=== PATIENT | male | born 1945 | race Caucasian/White ===

== ENCOUNTER 2019-05-26 14:52 | Inpatient (IN) | payer MEDICARE ==
[~2019-05-26] VITALS: Ht 170.2 cm; Wt 89.4 kg
[2019-05-26 15:15] VITALS: BP 145/79
--- NOTE | 2019-05-26 15:25 | NUR ---
PT VOID 200ML, BLADDER SCAN PER ORDER 61ML IN SCAN. CALL LIGHT IN REACH.
[2019-05-26 15:44] LABS: URINE BILIRUBIN - DIPSTICK NEGATIVE (NEGATIVE); URINE BLOOD DIPSTICK MODERATE (NEGATIVE); URINE CLARITY CLEAR; URINE COLOR YELLOW; URINE GLUCOSE - DIPSTICK NEGATIVE (NEGATIVE); URINE KETONE 15 mg/dL (NEGATIVE); URINE LEUK ESTERASE NEGATIVE (Negative); URINE NITRITE - DIPSTICK NEGATIVE (Negative); URINE PROTEIN - DIPSTICK 100 mg/dL (NEG-TRACE); URINE SPECIFIC GRAVITY 1.015
[2019-05-26 15:45] LABS: URINE WBC 0-2 WBC/hpf (0-5)
[2019-05-26 16:07] LABS: HEMATOCRIT 42.2 % (39.0-50.0); HEMOGLOBIN 13.8 g/dl (14.0-18.0); IMMATURE GRANULOCYTES 0.3 % (0.0-5.0); MEAN CORPUSCULAR HGB 30.4 pG CALC (26.0-32.0); MEAN CORPUSCULAR HGB CONC 32.7 g/L CALC (32.0-36.0); NEUT# 8.64 thou/uL (1.82-7.42); RED BLOOD COUNT 4.54 mill/uL (4.70-6.10); RED CELL DISTRI WIDTH 13.7 % (11.5-15.5)
[2019-05-26 16:13] LABS: ALBUMIN 3.8 g/dL (3.2-5.0); ALKALINE PHOSPHATASE 88 u/l (38-126); ANION GAP 17 (6-22 (CALC)); BILIRUBIN, TOTAL 1.2 mg/dL (0.0-1.4); BUN 17 mg/dL (8-23); BUN/CREATININE RATIO 13 (12-20 (CALC)); CARBON DIOXIDE 24 mmol/l (22-30); CHLORIDE 98 mmol/l (95-108); CREATININE 1.3 mg/dL (0.7-1.3); GFR 54 ML/MIN (>=60 (CALC)); GFR FOR AFR.AMER. > 60 ML/MIN (>=60 (CALC)); POTASSIUM 3.7 mmol/l (3.5-5.1); SGOT/AST 30 u/l (19-48); SODIUM 135 mmol/l (137-146); TOTAL PROTEIN 7.5 g/dL (6.3-8.2)
[2019-05-26] MEDS ORDERED: LEVEMIR100 UNIT/M SC (16:30)
[2019-05-26] MEDS ORDERED: TAMSULOSIN HCL0.4 MG PO (16:31)
[2019-05-26] MEDS ORDERED: ADULT ASPIRIN R81 MG PO (16:31)
[2019-05-26] MEDS ORDERED: PERINDOPRIL PO (16:32)
[2019-05-26] MEDS ORDERED: ZOCOR20 M1 PO (16:32)
--- NOTE | 2019-05-26 16:56 | NUR ---
ASSESSMENT DONE. PT IS A&O X3. PT STATED PAIN IN ABD 01/22. TELE IN PLACE. PT NPO. SAFETY PRECAUTIONS REINFORCED AND CALL LIGHT IN REACH.
[2019-05-26 18:57] VITALS: BP 136/58
--- NOTE | 2019-05-26 19:56 | NUR ---
PT MEDICATED ORDERS PROVIDE W/IV ANTIBIOTIC THERAPY. PT ASSESSMENT COMPLETED AT THIS TIME. PT DENIES NAUSEA, BUT VERY TENDER LRQ OF ABD. LUNG SOUNDS ARE DIM. URINE TO BE STRAINED AND OUTPUT TO BE MONITORED.
--- NOTE | 2019-05-26 22:17 | NUR ---
LAST DOSE OF GASTROGRAPHIN ADMINISTERED AT THIS TIME. AUTOMATIC PAD MAKING MACHINE OPERATOR NOTIFIED OF LAST DOSE BEING ADMINISTERED.
--- NOTE | 2019-05-26 23:32 | NUR ---
CALLED RADIOLOGY TO HAVE PT COME DOWN FOR CT SCAN ORDERED, INFORMED THAT THEY WERE TIED UP WITH ED PT'S AT THIS TIME AND WOULD CALL WHEN SCAN IS AVALIABLE FOR PT.
[2019-05-26 23:48] VITALS: BP 153/62
[2019-05-27] VITALS (10 sets, daily range): BP systolic 129–156; BP diastolic 49–77
--- NOTE | 2019-05-27 00:55 | NUR ---
PT DOWN TO RADIOLOGY FOR CT SCAN.
--- NOTE | 2019-05-27 01:18 | NUR ---
PT ARRIVED BACK TO THE FLOOR FROM CT SCAN. CALLED TO CHECK ON PT, RELAYED MESSAGE TO PT.
--- NOTE | 2019-05-27 01:28 | NUR ---
PT MEDICATED FOR NAUSEA, PAIN AND IV ANTIBIOTIC THERAPY ADMINISTERED AT THIS TIME. PT DENIES ANY OTHER NEEDS, JUST REPORTS NOT HAVING SLEPT IN TWO DAYS AND NEEDING SOME REST.
--- NOTE | 2019-05-27 05:08 | NUR ---
IVF REPLENISHED, PT PROVIDED MOUTH MOISTENING SWABS FOR COMFORT. REPORTS PAIN 4/10, DENIES MEDICATION AT THIS TIME. DENIES NAUSEA.
--- NOTE | 2019-05-27 06:12 | NUR ---
PT MEDICATED W/IV ANTIBOITIC THERAPY. DENIES NEED FOR PAIN MEDICATION AT THIS TIME.
[2019-05-27 06:47] LABS: HEMATOCRIT 37.2 % (39.0-50.0); HEMOGLOBIN 12.1 g/dl (14.0-18.0); MEAN CORPUSCULAR HGB 30.3 pG CALC (26.0-32.0); MEAN CORPUSCULAR HGB CONC 32.5 g/L CALC (32.0-36.0); RED CELL DISTRI WIDTH 13.5 % (11.5-15.5)
[2019-05-27 07:04] LABS: CREATININE 1.4 mg/dL (0.7-1.3); MAGNESIUM 2.2 mg/dL (1.6-2.3); POTASSIUM 3.7 mmol/l (3.5-5.1)
--- NOTE | 2019-05-27 13:07 | NUR ---
PT TAKEN TO THE OR VIA STRETCHER ACCOMPANIED BY NENITA BECK
--- NOTE | 2019-05-27 17:53 | NUR ---
ASSISTED PT TO THE BATHROOM. STEADY GAIT OBSERVED.
--- NOTE | 2019-05-27 18:02 | NUR ---
PT TOLERATING DINNER WELL. NO N&V REPORTED. NOTIFIED CONTRACT SPECIALIST OF PTS TOLERANCE TO FOOD, WILL START ON INSULIN SLIDING SCALE.
--- NOTE | 2019-05-27 19:15 | NUR ---
REPORT FROM JOYCE RESTREPO. PT SITTING UP IN BED WATCHING TV. ALERT AND ORIENTED. PT DENIES ANY PAIN OR DISCOMFORT. NO APPARENT DISTRESS NOTED. URINAL EMPTIED AND STRAINED. DISCUSSED POC. PT VERBALIZED UNDERSTANDING. CALL LIGHT WITHIN REACH. WILL CONTINUE TO MONITOR.
--- NOTE | 2019-05-27 23:25 | NUR ---
PT MEDICATED WITH PRN ATIVAN PER REQUEST FOR SLEEP. DENIES ANY OTHER WANTS OR NEEDS. CALL LIGHT WITHIN REACH. WILL CONTINUE TO MONITOR.
[2019-05-28 00:20] VITALS: BP 157/77
--- NOTE | 2019-05-28 03:03 | NUR ---
PT RESTING IN BED WITH EYES CLOSED. NO APPARENT DISTRESS NOTED. CALL LIGHT WITHIN REACH. WILL CONTINUE TO MONITOR.
[2019-05-28 04:00] VITALS: BP 152/79
--- NOTE | 2019-05-28 07:05 | NUR ---
REPORT RECEIVED FROM LAURO FELTON. PT RESTING IN BED WITH EYES CLOSED. RESPIRATIONS EVEN AND UNLABORED ON RA. NO S/S OF DISTRESS AT THIS TIME. WILL CONTINUE TO MONITOR.
[2019-05-28 08:00] VITALS: BP 140/67
--- NOTE | 2019-05-28 08:00 | NUR ---
PT RESTING IN BED ALERT AND ORIENTED. PT DENIES ANY PAIN OR DISCOMFORT AT THIS TIME. RESPIRATIONS EVEN AND UNLABORED ON RA. LUNGS SOUND CLEAR. PEDAL PULSES STRONG. SAFETY PRECAUTIONS IN PLACE, WILL CONTINUET TO MONITOR.
[2019-05-28] MEDS ORDERED: LORTAB 5/3255 MG PO (10:17)
[2019-05-28] MEDS ORDERED: KEFLEX500 MG PO (10:24)
[2019-05-28 11:10] VITALS: BP 160/76
--- NOTE | 2019-05-28 13:49 | NUR ---
Discharge instructions given. Patient verbalizes understanding of same. Discharged in stable condition via Wheelchair to Home with family. All belongings sent with pt.
== END 2019-05-28 13:49 | disposition home or self-care (01) | DRG 661 ==
LOC: MS2 14:52
PROVIDERS: Nurse Practitioner Family; ADMIT Internal Medicine; ATTEND Internal Medicine
PROC: 0T768DZ Dilation of Right Ureter with Intraluminal Device, Via Natural or Artificial Opening Endoscopic (ICD-10-PCS; principal; 2019-05-27)
PROC: BT1D1ZZ Fluoroscopy of Right Kidney, Ureter and Bladder using Low Osmolar Contrast (ICD-10-PCS; 2019-05-27)
DX: N13.1 Hydronephrosis with ureteral stricture, not elsewhere classified (principal); I10 Essential (primary) hypertension; E11.9 Type 2 diabetes mellitus without complications; Z87.442 Personal history of urinary calculi; Z85.46 Personal history of malignant neoplasm of prostate; Z79.4 Long term (current) use of insulin; Z87.891 Personal history of nicotine dependence
CPT/HCPCS: C1769; Q9967

== ENCOUNTER 2019-06-10 | Day surgery (SDC) | payer MEDICARE ==
[~2019-06-10] MED LIST: ADULT ASPIRIN R81 MG PO; KEFLEX500 MG PO; LEVEMIR100 UNIT/M SC; LORTAB 5/3255 MG PO; PERINDOPRIL PO; TAMSULOSIN HCL0.4 MG PO; ZOCOR20 M1 PO
[2019-06-10] MEDS ORDERED: PERCOCET 10/31 COMBO PO (14:01)
== END 2019-06-10 15:30 | disposition home or self-care (01) ==
PROC: 0TB68ZX Excision of Right Ureter, Via Natural or Artificial Opening Endoscopic, Diagnostic (ICD-10-PCS; principal; 2019-06-10)
PROC: 0T768DZ Dilation of Right Ureter with Intraluminal Device, Via Natural or Artificial Opening Endoscopic (ICD-10-PCS; 2019-06-10)
PROC: 0TP98DZ Removal of Intraluminal Device from Ureter, Via Natural or Artificial Opening Endoscopic (ICD-10-PCS; 2019-06-10)
DX: N13.1 Hydronephrosis with ureteral stricture, not elsewhere classified (principal); E11.9 Type 2 diabetes mellitus without complications; I10 Essential (primary) hypertension; C61 Malignant neoplasm of prostate
CPT/HCPCS: C1769; Q9967

== ENCOUNTER 2019-06-26 07:48 | Day surgery (SDC) | payer MEDICARE ==
[~2019-06-26] VITALS: Ht 170.2 cm; Wt 88.9 kg
[~2019-06-26 07:48] MED LIST changes: +PERCOCET 10/31 COMBO PO
[2019-06-26] MEDS ORDERED: PERCOCET 10/31 COMBO PO (10:47)
[2019-06-26 11:07] VITALS: BP 133/68
== END 2019-06-26 11:40 | disposition home or self-care (01) ==
LOC: ORM 07:48
PROVIDERS: ATTEND Urology
PROC: 0T768DZ Dilation of Right Ureter with Intraluminal Device, Via Natural or Artificial Opening Endoscopic (ICD-10-PCS; principal; 2019-06-26)
PROC: 0TP98DZ Removal of Intraluminal Device from Ureter, Via Natural or Artificial Opening Endoscopic (ICD-10-PCS; 2019-06-26)
DX: N13.5 Crossing vessel and stricture of ureter without hydronephrosis (principal); E11.9 Type 2 diabetes mellitus without complications; I10 Essential (primary) hypertension
CPT/HCPCS: C1769; J0131; Q9967